=== PATIENT | female | born 1975 | race African-American/Black ===

== ENCOUNTER 2021-12-01 16:32 | Emergency (ER) | payer OTHER, SELFPAY ==
[~2021-12-01] VITALS: Ht 160 cm; Wt 74.5 kg
[2021-12-01 17:47] LABS: BASO # 0.1 10^3/uL (0.0-0.2); BASO % 2.5 % (0.0-1.0); EOS # 0.4 10^3/uL (0.0-0.5); EOS % 7.2 % (0.0-3.0); HEMATOCRIT 25.7 % (36.0-47.0); LYMPH # 2.2 10^3/uL (1.5-5.0); LYMPH % 41.6 % (24.0-44.0); MEAN CORPUSCULAR HEMOGLOBIN 17.1 pg (27.0-33.0); MEAN CORPUSCULAR HGB CONC 27.2 g/dl (32.0-36.5); MEAN CORPUSCULAR VOLUME 62.7 fl (80.0-96.0); MONO # 0.5 10^3/uL (0.0-0.8); MONO % 8.9 % (2.0-8.0); NEUTROPHILS # 2.1 10^3/uL (1.5-8.5); NEUTROPHILS % 39.6 % (36.0-66.0); PLATELET COUNT, AUTOMATED 329 10^3/uL (150-450); WHITE BLOOD COUNT 5.3 10^3/uL (4.0-10.0)
[2021-12-01 17:58] LABS: BLOOD UREA NITROGEN 9 MG/DL (7-18); CARBON DIOXIDE LEVEL 24 MEQ/L (21-32); CHLORIDE LEVEL 112 MEQ/L (98-107); CREATININE FOR GFR 0.85 MG/DL (0.55-1.30); GLOMERULAR FILTRATION RATE > 60.0 (>58); GLUCOSE, FASTING 91 MG/DL (70-100); POTASSIUM SERUM 4.4 MEQ/L (3.5-5.1); SODIUM LEVEL 140 MEQ/L (136-145)
[2021-12-01 18:01] LABS: INR 0.92; PROTHROMBIN TIME 12.8 SECONDS (12.7-14.5)
[2021-12-01 20:25] LABS: FERRITIN 11 NG/ML (8-252); IRON (FE) 49 UG/DL (50-170); PERCENT SATURATION 11.1 % (13.2-45.0); TOTAL IRON BINDING CAPACITY 441 UG/DL (250-450)
[2021-12-01 21:30] VITALS: BP 106/55
[2021-12-01 21:45] VITALS: BP 110/70
[2021-12-01 22:30] VITALS: BP 110/67
[2021-12-01 23:47] VITALS: BP 100/54
[2021-12-02] VITALS (7 sets, daily range): BP systolic 93–104; BP diastolic 52–76
== END 2021-12-02 04:24 | disposition home or self-care (01) ==
LOC: M ED 16:32
DX: D50.9 Iron deficiency anemia, unspecified (principal); Z98.84 Bariatric surgery status
CPT/HCPCS: 36430; 80048; 82728; 83550; 85025; 85046; 85610; 86850; 86900; 86901; 86920; 99285; P9016

== ENCOUNTER 2021-12-03 08:31 | Outpatient (CLI) | payer OTHER, SELFPAY ==
[~2021-12-03] VITALS: Ht 160 cm; Wt 74.0 kg
[~2021-12-03 08:31] MED LIST: ACETAMINOPHEN TAB 650MG DOSE (2X325MG) PO ONE; ALBUTEROL SULFATE (2.5MG/0.5ML) NEB INH PRN; EPINEPHrine (1MG/ML) IV IM PRN; IRON SUCROSE 200 MG in NS 100 ML OVER 1 HR IV ONE; NS 1,000 ML IV ONE; NS 1,000 ML IV PRN; diphenhydrAMINE (50MG/ML) IV IV PRN; methylPREDNISolone (125 MG/2 ML) IV IV PRN
[2021-12-03 10:15] VITALS: BP 101/66
== END 2021-12-03 10:15 | disposition home or self-care (01) ==
LOC: M INFU 08:31
PROVIDERS: ATTEND Nurse Practitioner Primary Care
DX: D50.9 Iron deficiency anemia, unspecified (principal)
CPT/HCPCS: 96365; J1756

== ENCOUNTER 2021-12-10 08:38 | Outpatient (CLI) | payer OTHER ==
[~2021-12-10] VITALS: Ht 160 cm; Wt 74.0 kg
[~2021-12-10 08:38] MED LIST changes: -ALBUTEROL SULFATE (2.5MG/0.5ML) NEB INH PRN; +ALBUTEROL SULFATE 2.5 MG/0.5 ML INH NEB SOLN INH PRN; -EPINEPHrine (1MG/ML) IV IM PRN; +EPINEPHrine INJ 1 MG/ML 1ML AMP IM PRN; -NS 1,000 ML IV ONE; -NS 1,000 ML IV PRN; +NS 1,000 ML IV SCH; -diphenhydrAMINE (50MG/ML) IV IV PRN; +diphenhydrAMINE 50MG/ML VIAL (J1200) IV PRN; -methylPREDNISolone (125 MG/2 ML) IV IV PRN; +methylPREDNISolone 125MG 2ML VIAL IV PRN
[2021-12-10 08:55] VITALS: BP 124/70
[2021-12-10 10:30] VITALS: BP 112/75
== END 2021-12-10 10:30 | disposition home or self-care (01) ==
LOC: M INFU 08:38
PROVIDERS: ATTEND Nurse Practitioner Primary Care
DX: D50.8 Other iron deficiency anemias (principal)
CPT/HCPCS: 96365; J1756

== ENCOUNTER 2021-12-17 15:10 | Outpatient (CLI) | payer OTHER ==
[~2021-12-17] VITALS: Ht 157.5 cm; Wt 74.0 kg
[2021-12-17 15:10] VITALS: BP 111/71
[2021-12-17 16:45] VITALS: BP 109/70
== END 2021-12-17 16:45 | disposition home or self-care (01) ==
LOC: M INFU 15:10
PROVIDERS: ATTEND Nurse Practitioner Primary Care
DX: D50.9 Iron deficiency anemia, unspecified (principal)
CPT/HCPCS: 96365; J1756

== ENCOUNTER 2021-12-24 15:00 | Outpatient (CLI) | payer OTHER, SELFPAY ==
[2021-12-24 15:00] VITALS: BP 115/68
[2021-12-24 16:20] VITALS: BP 114/76
== END 2021-12-24 16:23 | disposition home or self-care (01) ==
LOC: M INFU 15:00
PROVIDERS: ATTEND Nurse Practitioner Primary Care
DX: D50.8 Other iron deficiency anemias (principal)
CPT/HCPCS: 96365; J1756

== ENCOUNTER 2021-12-31 13:05 | Outpatient (CLI) | payer OTHER, SELFPAY ==
[~2021-12-31] VITALS: Ht 160 cm; Wt 74.0 kg
[~2021-12-31 13:05] MED LIST changes: -ACETAMINOPHEN TAB 650MG DOSE (2X325MG) PO ONE; -IRON SUCROSE 200 MG in NS 100 ML OVER 1 HR IV ONE; -NS 1,000 ML IV SCH
[2021-12-31] MEDS ORDERED: NS 1,000 ML IV SCH (15:00)
[2021-12-31] MEDS ORDERED: ACETAMINOPHEN TAB 650MG DOSE (2X325MG) PO ONE (15:00)
[2021-12-31] MEDS ORDERED: IRON SUCROSE 200 MG in NS 100 ML OVER 1 HR IV ONE (15:00)
[2021-12-31 15:11] VITALS: BP 114/61
[2021-12-31 16:05] VITALS: BP 107/70
== END 2021-12-31 16:05 | disposition home or self-care (01) ==
LOC: M INFU 13:05
PROVIDERS: ATTEND Nurse Practitioner Primary Care
DX: D50.8 Other iron deficiency anemias (principal)
CPT/HCPCS: 96365; J1756